=== PATIENT | male | born 1975 | race African-American/Black ===

== ENCOUNTER 2017-09-19 12:54 | Outpatient (CLI) | payer BC | END 2017-09-19 23:59 | disposition home or self-care (01) | LOC: LAB 12:54 | DX: R10.84 Generalized abdominal pain (principal) | CPT/HCPCS: 36415; 87207-TC ==

== ENCOUNTER 2019-07-30 07:27 | Emergency (ER) | payer BC ==
[~2019-07-30] VITALS: Ht 177.8 cm; Wt 113.4 kg
[2019-07-30] MEDS ORDERED: LIDOCAINE /MPF 1% VIAL 5 ML VIAL ONE (07:39)
[2019-07-30] MEDS ORDERED: TDAP [DIPH/PERTUSSIS/TET] 0.5 ML VIAL IM ONE ×2 (07:41→08:00)
[2019-07-30] MEDS ORDERED: LIDOCAINE HCL/PF 1% 30 ML VIAL TP ONE (08:00)
[2019-07-30 08:32] VITALS: BP 134/85
--- NOTE | 2019-07-30 08:32 | NUR ---
WOUND CLEANSED, LAC REPAIR BY DR. VERGARA, COVERED WITH DRESSING AND SPLINT APPLIED. Patient discharged to home in stable condition. Written and verbal after care instructions given. Patient verbalizes understanding of instruction.
== END 2019-07-30 08:33 | disposition home or self-care (01) ==
LOC: ER 07:32
DX: S61.211A Laceration without foreign body of left index finger without damage to nail, initial encounter (principal); W25.XXXA Contact with sharp glass, initial encounter; Y93.89 Activity, other specified; Y92.89 Other specified places as the place of occurrence of the external cause; Y99.8 Other external cause status
CPT/HCPCS: 12002; 90471; 90715; 99283; A6403; J3490 ×2